=== PATIENT | female | born 1955 | race Caucasian/White ===

== ENCOUNTER 2017-02-07 16:53 | Emergency (ER) | payer BC ==
[2017-02-07] MEDS ORDERED: SODIUM CHLORIDE 0.9% 1,000 ML IV STA (17:19)
--- NOTE | 2017-02-07 17:23 | ED ---
Chest Pain HPI - General Stated Complaint: Blood Pressure Time Seen by Provider: 02/07/17 17:06 Source: patient, RN notes reviewed, old records reviewed Mode of arrival: ambulatory Limitations: no limitations - History of Present Illness Initial Comments: This is a 61 year old female with chief complaint of light headedness, elevated blood pressure, and occasional chest pain and shortness of breath. Patient states she quit smoking in September, and that she has been out of her blood pressure medications and cholesterol medication for a few weeks. She statse that she ran out of insurance and does not have a PCP. 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 She states she went to an urgent care, and her BP was 180/94 and then again 156/84. She states that she has also been extremely fatigued. Reports that when she has this she light headed ness she feels nausseated. Denies any previous heart history. 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 - Related Data Home Medications Medication Instructions Recorded Confirmed Albuterol Sulfate [Proair Hfa] 1 - 2 puff INHALATION RT-Q6H PRN 02/07/17 Fluticasone Nasal [place] [Flonase 1 spr EA NOSTRIL DAILY 02/07/17 02/07/17 Nasal [place]] Loratadine [Claritin] 10 mg PO DAILY 02/07/17 02/07/17 Simethicone [Gas-X] 125 mg PO QID PRN 02/07/17 02/07/17 Previous Rx's Medication Instructions Recorded Meclizine HCl 12.5 mg PO TID #15 tab 02/07/17 amLODIPine [Norvasc] 5 mg PO DAILY #30 tab 02/07/17 Allergies Allergy/AdvReac Type Severity Reaction Status Date / Time No Known Allergies Allergy Verified 02/07/17 17:13 Review of Systems ROS Statement: Those systems with pertinent positive or pertinent negative responses have been documented in the HPI. ROS Other: All systems not noted in ROS Statement are negative. EKG Findings - EKG Comments: EKG Findings:: EKG shows normal sinus rhythm, normal ECG. Vent rate 66 bpm, NV interval 132 ms, QRS duration 92 ms. QT/QTc 412/431 ms. 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 Limitations: no limitations General appearance: alert, in no apparent distress Head exam: Present: atraumatic, normocephalic, normal inspection Eye exam: Present: normal appearance, PERRL, EOMI. Absent: scleral icterus, conjunctival injection, periorbital swelling ENT exam: Present: normal exam, mucous membranes moist Neck exam: Present: normal inspection. Absent: tenderness, meningismus, lymphadenopathy Respiratory exam: Present: normal lung sounds bilaterally. Absent: respiratory distress, wheezes, rales, rhonchi, stridor Cardiovascular Exam: Present: regular rate, normal rhythm, normal heart sounds. Absent: systolic murmur, diastolic murmur, rubs, gallop, clicks GI/Abdominal exam: Present: soft, normal bowel sounds. Absent: distended, tenderness, guarding, rebound, rigid Extremities exam: Present: normal inspection, full ROM, normal capillary refill. Absent: tenderness, pedal edema, joint swelling, calf tenderness Back exam: Present: normal inspection Neurological exam: Present: alert, oriented X3, CN II-XII intact Psychiatric exam: Present: normal affect, normal mood Skin exam: Present: warm, dry, intact, normal color. Absent: rash Course Vital Signs 02/07/17 02/07/17 02/07/17 16:55 19:52 20:25 Temperature 97.7 F 97.2 F L Pulse Rate 80 70 Pulse Rate [ 71 Right Sitting] Pulse Rate [ 77 Right Standing] Pulse Rate [ 67 Right Supine] Respiratory 18 16 18 Rate Blood Pressure 186/86 165/77 Blood Pressure 179/89 [Right Arm Sitting] Blood Pressure 178/95 [Right Arm Standing] Blood Pressure 165/77 [Right Arm Supine] O2 Sat by Pulse 98 99 96 Oximetry Chest Pain MDM - MDM This is a 61-year-old female complaining of lightheadedness and dizziness. All labs were reviewed and are negative for any acute process. EKG is reviewed be normal. Chest x-ray normal. Patient states that she feels well enough to home. Orthostatics reviewed and negative. Patient will be started on meclizine and instructed to follow-up with primary care provider. She also given a refill for her blood pressure medication. Discussed case with Dr. Padilla. He agrees with inpatient follow-up. Patient understands treatment plan will comply. Return parameters were discussed. Patient was also given a refill of her blood pressure medication Norvasc 5 mg. Disposition Clinical Impression: Dizziness Disposition: HOME SELF-CARE Condition: Good Instructions: Dizziness (ED) Additional Instructions: Patient denies rest, remain hydrated. Patient needs to follow-up with primary care provider within the next 2 or 3 days. Return to the emergency department if any alarming signs or symptoms occur. Prescriptions: Meclizine HCl 12.5 mg PO TID #15 tab amLODIPine [Norvasc] 5 mg PO DAILY #30 tab Referrals: None,Stated [Primary Care Provider] - 1-2 days Madison Sullivan MD [STAFF PHYSICIAN] - 1-2 days Time of Disposition: 20:05
[2017-02-07] MEDS ORDERED: cloNIDine HCL 0.1 MG TAB PO STA (17:46)
[2017-02-07 18:09] LABS: Basophils % (A) 1 %; CH 30.8; CHCM 33.4; Eosinophils # (A) 0.2 k/uL (0-0.7); Eosinophils % (A) 3 %; HCT 40.7 % (34.0-46.0); HDW 2.58; HGB 13.4 gm/dL (11.4-16.0); Luc # (Auto) 0.19; Luc % (Auto) 3; Lymphocytes # (A) 2.4 k/uL (1.0-4.8); Lymphocytes % (A) 36 %; MCH 30.6 pg (25.0-35.0); MCV 92.6 fL (80.0-100.0); Mean Platelet Volume 7.4; Monocytes # (A) 0.3 k/uL (0-1.0); Monocytes % (A) 5 %; Neutrophils # (A) 3.5 k/uL (1.3-7.7); Neutrophils % (A) 53 %; RDW 14.3 % (11.5-15.5); WBC 6.7 k/uL (3.8-10.6); WBC (Perox) 6.61
[2017-02-07 18:18] LABS: ALT 50 U/L (9-52); AST 35 U/L (14-36); Alkaline Phosphatase 50 U/L (38-126); Anion Gap 8 mmol/L; Blood Urea Nitrogen 15 mg/dL (7-17); Calcium 9.3 mg/dL (8.4-10.2); Carbon Dioxide 28 mmol/L (22-30); Chloride 106 mmol/L (98-107); Glucose 99 mg/dL (74-99); Magnesium 2.1 mg/dL (1.6-2.3); Non-African American GFR(MDRD) >60 (>60 ml/min/1.73 sqM); Sodium 142 mmol/L (137-145); Total Bilirubin 0.4 mg/dL (0.2-1.3); Total Protein 6.9 g/dL (6.3-8.2)
[2017-02-07 18:21] LABS: Partial Thromboplastin Time 23.8 sec (22.0-30.0); Prothrombin Time 10.1 sec (9.0-12.0)
--- NOTE | 2017-02-07 18:24 | XR ---
EXAMINATION TYPE: XR chest 2V DATE OF EXAM: 02/07/2017 6:15 PM COMPARISON: NONE HISTORY: Chest pain TECHNIQUE: Frontal and lateral views of the chest are obtained. FINDINGS: There is no heart failure nor confluent pneumonic infiltrate. Thoracic aorta is atheromato us. There are no hilar masses. There is no pleural effusion. There are chest leads. Bony thorax is in tact. IMPRESSION: No active cardiopulmonary disease.
[2017-02-07 18:35] LABS: Creatine Kinase 104 U/L (30-135)
[2017-02-07 18:38] LABS: Appearance,Urine Clear (Clear); Bilirubin,Urine Negative (Negative); Glucose,Urine (UA) Negative (Negative); Ketones,Urine Negative (Negative); Leukocyte Esterase,Urine Negative (Negative); Nitrite,Urine Negative (Negative); Protein,Urine Negative (Negative); Specific Gravity,Urine 1.019 (1.001-1.035); UA Billing (MACRO vs. MICRO) CHEM; Urobilinogen,Urine <2.0 mg/dL (<2.0)
[2017-02-07 18:47] LABS: Creatine Kinase MB 1.8 ng/mL (0.0-2.4); Troponin I <0.012 ng/mL (0.000-0.034)
[2017-02-07 19:54] VITALS: BP 165/77
[2017-02-07 20:25] VITALS: PULSE 70; RESP 18; TEMP 97.2
== END 2017-02-07 20:25 | disposition home or self-care (01) ==
LOC: EC 16:53
DX: R42 Dizziness and giddiness (principal); R07.9 Chest pain, unspecified; R06.02 Shortness of breath; I10 Essential (primary) hypertension; R53.83 Other fatigue; R11.0 Nausea; Z87.891 Personal history of nicotine dependence; Z79.51 Long term (current) use of inhaled steroids; Z79.899 Other long term (current) drug therapy
CPT/HCPCS: 36415; 71020; 80053; 81003; 82550; 82553; 83735; 83880; 84443; 84484; 85025; 85379; 85610; 85730; 93005; 96360; 99284

== ENCOUNTER → 2018-09-21 | Outpatient (CLI) | payer OTHER ==
--- NOTE | 2018-09-24 11:18 | MM ---
Reason for exam: screening (asymptomatic). Last mammogram was performed 8 years and 5 months ago. History: Patient is postmenopausal. Excisional biopsy of the right breast. Physical Findings: A clinical breast exam by your physician is recommended on an annual basis and results should be correlated with mammographic findings. MG Screening Mammo w CAD Bilateral CC and MLO view(s) were taken. Prior study comparison: February 20, 2017, mammogram. November 04, 2015, mammogram. There are scattered fibroglandular densities. Finding: There are typically benign round calcifications in the upper outer quadrant, middle position of the right breast. There is no discrete abnormality. ASSESSMENT: Benign, BI-RAD 2 RECOMMENDATION: Routine screening mammogram of both breasts in 1 year.
== END | disposition home or self-care (01) ==
LOC: RADMAMWWP 10:20
PROVIDERS: ATTEND Internal Medicine
DX: Z12.31 Encounter for screening mammogram for malignant neoplasm of breast (principal)
CPT/HCPCS: 77067

== ENCOUNTER 2018-10-06 08:22 | Observation (INO) | payer OTHER ==
[2018-10-06] MEDS ORDERED: SODIUM CHLORIDE 0.9% 1,000 ML IV STA (08:40)
--- NOTE | 2018-10-06 08:44 | ED ---
General Adult HPI - General Chief complaint: Extremity Injury, Upper Stated complaint: FLU SYMPTOMS, LEFT SHOULDER PAIN Time Seen by Provider: 10/06/18 08:29 Source: patient, RN notes reviewed, old records reviewed Mode of arrival: ambulatory Limitations: no limitations - History of Present Illness Initial comments: Patient is a 63-year-old female who presents the emergency department today with complaints of left shoulder pain starting last night, she reports it feels like a dull pressure in her back and shoulder, towards chest. Patient reports she's been having upper a story congestion and cough for the past week. She believes that her coughing may have strained a muscle. She does state that her left shoulder pain does not change with movement. And she reports that she's had somewhat of a productive cough. Patient states that she initially thought she may have had the flu this week. She denies any abdominal pain. She reports she's had some episodes of diaphoresis and nausea. Patient denies any peripheral paresthesias. Patient states that she does have a history of hypertension. Patient is a former smoker. Surgical history includes tonsillectomy and uterine ablation.Patient denies any recent fever, chills, abdominal pain, nausea vomiting, numbness or tingling, dysuria or hematuria, constipation or diarrhea, headaches or visual changes, or any other current symptoms - Related Data Home Medications Medication Instructions Recorded Confirmed Albuterol Sulfate [Proair Hfa] 1 - 2 puff INHALATION RT-Q6H PRN 02/07/17 Atorvastatin [Lipitor] 10 mg PO DAILY 10/06/18 10/06/18 Ergocalciferol [Vitamin D2] 50,000 unit PO MO 10/06/18 10/06/18 Hydrochlorothiazide [Hydrodiuril] 25 mg PO DAILY 10/06/18 10/06/18 Metoprolol Succinate (ER) [Toprol 50 mg PO DAILY 10/06/18 10/06/18 Xl] Omeprazole 20 mg PO DAILY 10/06/18 10/06/18 buPROPion HCL [Wellbutrin Sr] 200 mg PO DAILY 10/06/18 10/06/18 Allergies Allergy/AdvReac Type Severity Reaction Status Date / Time No Known Allergies Allergy Verified 10/06/18 09:39 Review of Systems ROS Statement: Those systems with pertinent positive or pertinent negative responses have been documented in the HPI. ROS Other: All systems not noted in ROS Statement are negative. Past Medical History Past Medical History: Hypertension Additional Past Medical History / Comment(s): HPV History of Any Multi-Drug Resistant Organisms: None Reported Past Surgical History: Tonsillectomy, Uterine Ablation Past Psychological History: No Psychological Hx Reported Smoking Status: Former smoker Past Alcohol Use History: Occasional Past Drug Use History: None Reported General Exam - General Exam Comments Initial Comments: 63-year-old female. Alert and oriented 3. Patient appears in no significant distress. Limitations: no limitations General appearance: alert, in no apparent distress Head exam: Present: atraumatic, normocephalic, normal inspection Eye exam: Present: normal appearance, PERRL, EOMI. Absent: scleral icterus, conjunctival injection, periorbital swelling ENT exam: Present: normal exam, mucous membranes moist Neck exam: Present: normal inspection. Absent: tenderness, meningismus, lymphadenopathy Respiratory exam: Present: normal lung sounds bilaterally, other (Slight nonproductive cough). Absent: respiratory distress, wheezes, rales, rhonchi, stridor Cardiovascular Exam: Present: regular rate, normal rhythm, normal heart sounds. Absent: systolic murmur, diastolic murmur, rubs, gallop, clicks GI/Abdominal exam: Present: soft, normal bowel sounds. Absent: distended, tenderness, guarding, rebound, rigid Extremities exam: Present: normal inspection, full ROM, normal capillary refill. Absent: tenderness, pedal edema, joint swelling, calf tenderness Back exam: Present: normal inspection Neurological exam: Present: alert, oriented X3, CN II-XII intact Psychiatric exam: Present: normal affect, normal mood Skin exam: Present: warm, dry, intact, normal color. Absent: rash Course Vital Signs 10/06/18 08:25 Temperature 97.4 F L Pulse Rate 87 Respiratory 20 Rate Blood Pressure 115/78 O2 Sat by Pulse 97 Oximetry EKG Findings - EKG Comments: EKG Findings:: EKG performed at 914 shows normal sinus rhythm with voltage QRS. Borderline EKG. Trigger a 69 bpm. It was 146 most seconds. She alevism 88. QT QTc is 414/443 ms. Medical Decision Making - Medical Decision Making 63-year-old female presents emergency with left shoulder pain starting last night. Patient reports that she's had upper respiratory congestion and cough for the past week. She initially thought this shoulder pain is related to this. Patient is alert and has not reproducible. Full range of motion noted. The lungs were relatively clear. She has had a slight nonproductive cough. Patient has history of hypertension and hyperlipidemia. Since welfare case worker. VQ scan performed shows no significant changes. Her initial troponin is negative. Patient continues to complain of a dull ache within her shoulder radiating towards her chest. Discussed at this time still concern for possibility of cardiac origin. Patient will be admitted under sounds physician. I discussed the case with Dr. Mauro discussed case with Physician. - Lab Data Result diagrams: 10/06/18 09:16 10/06/18 09:16 Lab Results 10/06/18 10/06/18 10/06/18 Range/Units 09:16 09:16 09:16 WBC 8.0 (3.8-10.6) k/uL RBC 4.90 (3.80-5.40) m/uL Hgb 14.8 (11.4-16.0) gm/dL Hct 43.7 (34.0-46.0) % MCV 89.3 (80.0-100.0) fL MCH 30.2 (25.0-35.0) pg MCHC 33.8 (31.0-37.0) g/dL RDW 14.7 (11.5-15.5) % Plt Count 269 (150-450) k/uL Neutrophils % 63 % Lymphocytes % 27 % Monocytes % 4 % Eosinophils % 4 % Basophils % 1 % Neutrophils # 5.1 (1.3-7.7) k/uL Lymphocytes # 2.2 (1.0-4.8) k/uL Monocytes # 0.3 (0-1.0) k/uL Eosinophils # 0.3 (0-0.7) k/uL Basophils # 0.0 (0-0.2) k/uL PT (9.0-12.0) sec INR (<1.2) APTT (22.0-30.0) sec D-Dimer (<0.60) mg/L FEU Sodium 140 (137-145) mmol/L Potassium 3.4 L (3.5-5.1) mmol/L Chloride 106 (98-107) mmol/L Carbon Dioxide 26 (22-30) mmol/L Anion Gap 8 mmol/L BUN 12 (7-17) mg/dL Creatinine 1.00 (0.52-1.04) mg/dL Est GFR (CKD-EPI)AfAm 70 (>60 ml/min/1.73 sqM) Est GFR (CKD-EPI)NonAf 61 (>60 ml/min/1.73 sqM) Glucose 185 H (74-99) mg/dL Calcium 9.2 (8.4-10.2) mg/dL Magnesium 2.0 (1.6-2.3) mg/dL Total Bilirubin 0.5 (0.2-1.3) mg/dL AST 39 H (14-36) U/L ALT 47 (9-52) U/L Alkaline Phosphatase 47 (38-126) U/L Total Creatine Kinase 97 (30-135) U/L CK-MB (CK-2) 0.8 (0.0-2.4) ng/mL CK-MB (CK-2) Rel Index 0.8 Troponin I <0.012 (0.000-0.034) ng/mL NT-Pro-B Natriuret Pep pg/mL Total Protein 6.9 (6.3-8.2) g/dL Albumin 4.1 (3.5-5.0) g/dL 10/06/18 10/06/18 Range/Units 09:16 09:16 WBC (3.8-10.6) k/uL RBC (3.80-5.40) m/uL Hgb (11.4-16.0) gm/dL Hct (34.0-46.0) % MCV (80.0-100.0) fL MCH (25.0-35.0) pg MCHC (31.0-37.0) g/dL RDW (11.5-15.5) % Plt Count (150-450) k/uL Neutrophils % % Lymphocytes % % Monocytes % % Eosinophils % % Basophils % % Neutrophils # (1.3-7.7) k/uL Lymphocytes # (1.0-4.8) k/uL Monocytes # (0-1.0) k/uL Eosinophils # (0-0.7) k/uL Basophils # (0-0.2) k/uL PT 10.3 (9.0-12.0) sec INR 1.0 (<1.2) APTT 23.1 (22.0-30.0) sec D-Dimer 0.35 (<0.60) mg/L FEU Sodium (137-145) mmol/L Potassium (3.5-5.1) mmol/L Chloride (98-107) mmol/L Carbon Dioxide (22-30) mmol/L Anion Gap mmol/L BUN (7-17) mg/dL Creatinine (0.52-1.04) mg/dL Est GFR (CKD-EPI)AfAm (>60 ml/min/1.73 sqM) Est GFR (CKD-EPI)NonAf (>60 ml/min/1.73 sqM) Glucose (74-99) mg/dL Calcium (8.4-10.2) mg/dL Magnesium (1.6-2.3) mg/dL Total Bilirubin (0.2-1.3) mg/dL AST (14-36) U/L ALT (9-52) U/L Alkaline Phosphatase (38-126) U/L Total Creatine Kinase (30-135) U/L CK-MB (CK-2) (0.0-2.4) ng/mL CK-MB (CK-2) Rel Index Troponin I (0.000-0.034) ng/mL NT-Pro-B Natriuret Pep 25 pg/mL Total Protein (6.3-8.2) g/dL Albumin (3.5-5.0) g/dL - Radiology Data Radiology results: report reviewed Chest x-ray shows hypoventilatory chronic changes. No definite abscess. Disposition Clinical Impression: Shoulder pain, left, Atypical chest pain Disposition: ADMITTED IP TO THIS [facility] Condition: Stable Is patient prescribed a controlled substance at d/c from ED?: No Referrals: Eduin Su MD [Primary Care Provider] - 1-2 days Time of Disposition: 11:08
[2018-10-06 09:36] LABS: Basophils % (A) 1 %; Eosinophils # (A) 0.3 k/uL (0-0.7); Eosinophils % (A) 4 %; HCT 43.7 % (34.0-46.0); HGB 14.8 gm/dL (11.4-16.0); Lymphocytes # (A) 2.2 k/uL (1.0-4.8); Lymphocytes % (A) 27 %; MCH 30.2 pg (25.0-35.0); MCHC 33.8 g/dL (31.0-37.0); MCV 89.3 fL (80.0-100.0); Mean Platelet Volume 7.3; Monocytes # (A) 0.3 k/uL (0-1.0); Monocytes % (A) 4 %; Neutrophils # (A) 5.1 k/uL (1.3-7.7); Neutrophils % (A) 63 %; Platelet Count 269 k/uL (150-450); RDW 14.7 % (11.5-15.5)
--- NOTE | 2018-10-06 09:43 | XR ---
EXAMINATION TYPE: XR chest 2V DATE OF EXAM: 10/06/2018 COMPARISON: 02/07/2017 HISTORY: 63-year-old female with chest pain TECHNIQUE: PA and lateral views FINDINGS: Slightly low lung volumes with crowded vascular markings. Mild interstitial prominence. Heart upper l imits of normal in size. Focal opacity at the cardiac apex suggestive of epicardial fat pad. No conso lidation or pleural effusion. Atelectatic arch calcifications. IMPRESSION: Hypoventilatory and chronic changes. No definite acute process.
[2018-10-06 09:50] LABS: Albumin 4.1 g/dL (3.5-5.0); Calcium 9.2 mg/dL (8.4-10.2); Potassium 3.4 mmol/L (3.5-5.1); Total Bilirubin 0.5 mg/dL (0.2-1.3); Total Protein 6.9 g/dL (6.3-8.2)
[2018-10-06 09:57] LABS: D-Dimer 0.35 mg/L FEU (<0.60); Partial Thromboplastin Time 23.1 sec (22.0-30.0); Prothrombin Time 10.3 sec (9.0-12.0)
[2018-10-06 10:09] LABS: Creatine Kinase 97 U/L (30-135)
[2018-10-06 10:21] LABS: Creatine Kinase MB 0.8 ng/mL (0.0-2.4); Troponin I <0.012 ng/mL (0.000-0.034)
[2018-10-06] MEDS ORDERED: NITROGLYCERIN SL TABS 0.4 MG TAB SUBLINGUAL PRN (11:10)
[2018-10-06] MEDS ORDERED: MORPHINE SULFATE 4 MG/ML SYRINGE IVP STA (12:07)
[2018-10-06] MEDS ORDERED: ASPIRIN 81 MG PO STA (12:39)
[2018-10-06] MEDS: SODIUM CHLORIDE 0.9% 1,000 ML IV SCH ×2 (12:56→22:21)
[2018-10-06] MEDS ORDERED: MORPHINE SULFATE 4 MG/ML SYRINGE IV PRN (13:48)
[2018-10-06] MEDS ORDERED: NALOXONE 0.4 MG/ML 1 ML VIAL IV PRN (13:48)
[2018-10-06] MEDS ORDERED: ACETAMINOPHEN TAB 325 MG TAB PO PRN (13:48)
--- NOTE | 2018-10-06 13:51 | P.HPIM ---
History of Present Illness H&P Date: 10/06/18 Chief Complaint: Back pain 63-year-old female with PMH of hypertension, hyperlipidemia presents to the ED for chest and back pain. Patient reports suffering from a viral illness for the past week and a half. Her illnesses is characterized by rhinorrhea, productive cough of clear sputum, sore throat and sneezing. Patient reports experiencing upper back pain/chest pain yesterday. Pain was unprovoked. Pain is located in between the shoulder blades. Pain is 8 out of 10 in severity. Pain is described as burning in nature. Patient reports that the pain radiates to left shoulder. Pain is aggravated with movement and alleviated by standing still. Patient reports no prior incidents. Patient states that this pain was persistent but eventually resolved. Patient was able to go back to bed, but woke up around 4 AM with this excruciating pain. This prompted her to come to the ED. She denies any headaches, lower extremity edema , fever, cough, shortness of breath, changes in urination or bowel habits. No changes in appetite or weight. No numbness, weakness or tingling of the extremities. Patient does report nausea from yesterday but no episodes of vomiting. She also endorses chills as well. In the ED, vital signs are stable. CBC and CMP were unremarkable except for a potassium of 3.4, glucose of 185 and AST of 39. Initial troponin was less than 0.012, EKG showing normal sinus rhythm. Chest x-ray shows hypoventilatory and chronic changes. Patient is admitted for chest pain, rule out acute coronary syndrome. Cardiology is on consult. 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 History of Any Multi-Drug Resistant Organisms: None Reported Past Surgical History: Tonsillectomy, Uterine Ablation Past Psychological History: No Psychological Hx Reported Smoking Status: Former smoker Past Alcohol Use History: Occasional Past Drug Use History: None Reported Medications and Allergies Home Medications Medication Instructions Recorded Confirmed Type Albuterol Sulfate [Proair Hfa] 1 - 2 puff INHALATION RT-Q6H PRN 02/07/17 History Atorvastatin [Lipitor] 10 mg PO DAILY 10/06/18 10/06/18 History Ergocalciferol [Vitamin D2] 50,000 unit PO MO 10/06/18 10/06/18 History Hydrochlorothiazide [Hydrodiuril] 25 mg PO DAILY 10/06/18 10/06/18 History Metoprolol Succinate (ER) [Toprol 50 mg PO DAILY 10/06/18 10/06/18 History Xl] Omeprazole 20 mg PO DAILY 10/06/18 10/06/18 History buPROPion HCL [Wellbutrin Sr] 200 mg PO DAILY 10/06/18 10/06/18 History Allergies Allergy/AdvReac Type Severity Reaction Status Date / Time No Known Allergies Allergy Verified 10/06/18 09:39 Physical Exam Vitals: Vital Signs Temp Pulse Resp BP Pulse Ox 10/06/18 08:25 97.4 F L 87 20 115/78 97 Intake and Output 10/05/18 10/06/18 10/06/18 22:59 06:59 14:59 Other: Weight 108.862 kg General: [non toxic], [no distress], [appears at stated age] Derm: [warm], [dry] Head: [atraumatic], [normocephalic], [symmetric] Eyes: [EOMI], [no lid lag], [anicteric sclera] Mouth: [no lip lesion], [mucus membranes moist] Cardiovascular: [S1S2 reg], [no murmur], [positive posterior tibial pulse bilateral], Lungs: [CTA bilateral], [no rhonchi, no rales] , [no accessory muscle use] Abdominal: [soft], [ nontender to palpation], [no guarding], [no appreciable organomegaly] Ext: [no gross muscle atrophy], [no edema], [no contractures] Neuro: [ CN II-XI grossly intact], [no focal neuro deficits] Psych: [Alert], [oriented], [appropriate affect] Results CBC & Chem 7: 10/06/18 09:16 10/06/18 09:16 Labs: Abnormal Lab Results - Last 24 Hours (Table) 10/06/18 Range/Units 09:16 Potassium 3.4 L (3.5-5.1) mmol/L Glucose 185 H (74-99) mg/dL AST 39 H (14-36) U/L Thrombosis Risk Factor Assmnt - Choose All That Apply Any of the Below Risk Factors Present?: No Other Risk Factors: Yes Each Risk Factor Represents 2 Points: Age 61-74 years Thrombosis Risk Factor Assessment Total Risk Factor Score: 2 Thrombosis Risk Factor Assessment Level: Low Risk Assessment and Plan Assessment: Assessment and Plan Chest pain - Likely to be musculoskeletal due to cough. - Initial troponin is less than 0.012 with EKG showing normal sinus rhythm. - Chest x-ray is negative for any acute process. - Start aspirin 325 mg by mouth daily. Will restart Lipitor 10 mg by mouth daily. Restart metoprolol 50 mg by mouth daily. Pain management with Nitrostat , Tylenol and morphine IV as needed. Telemetry monitoring. I will trend 2 troponins with EKG to rule out acute coronary syndrome. Will follow lipid panel and echocardiogram results. We will follow cardiology for further recommendations. Hypertension - Blood pressure is stable on admission at 115/78 - Resume hydrochlorothiazide 25 mg by mouth daily, metoprolol. - Monitor vitals, adjust medications as necessary. Hyperlipidemia - We will resume Lipitor 10 mg by mouth daily. Patient is being admitted for chest pain rule out acute coronary syndrome. Cardiology is on consult.
[2018-10-06 15:50] VITALS: RESP 18
[2018-10-06 16:23] LABS: Creatine Kinase 96 U/L (30-135)
[2018-10-06 16:36] LABS: Creatine Kinase MB 0.8 ng/mL (0.0-2.4); Troponin I <0.012 ng/mL (0.000-0.034)
--- NOTE | 2018-10-06 18:27 | ECHOF ---
Referral Reason:Chest pain MEASUREMENTS -------- HEIGHT: 165.1 cm WEIGHT: 108.9 kg BP: 115/78 RVIDd: 3.0 cm (< 3.3) IVSd: 1.4 cm (0.6 - 1.1) LVIDd: 4.0 cm (3.9 - 5.3) LVPWd: 1.3 cm (0.6 - 1.1) IVSs: 1.7 cm LVIDs: 2.7 cm LVPWs: 1.6 cm LA Diam: 3.3 cm (2.7 - 3.8) LAESV Index (A-L): 12.49 ml/m Ao Diam: 3.0 cm (2.0 - 3.7) AV Cusp: 2.0 cm (1.5 - 2.6) EPSS: 0.7 cm MV E Conor: 0.96 m/s MV DecT: 236 ms MV A Conor: 0.86 m/s MV E/A Ratio: 1.12 RAP: 5.00 mmHg RVSP: 23.40 mmHg MV EF SLOPE: 53.97 mm/s (70 - 150) MV EXCURSION: 0.68 cm (> 18.000) FINDINGS -------- Sinus rhythm. This was a technically adequate study. The left ventricular size is normal. There is moderate concentric left ventricular hypertrophy. O verall left ventricular systolic function is normal with, an EF between 60 - 65 %. The right ventricle is normal in size. Normal LA size by volume 22+/-6 ml/m2. The right atrium is normal in size. The aortic valve is trileaflet and appears structurally normal. Mild mitral annular calcification present. Mild tricuspid regurgitation present. Right ventricular systolic pressure is normal at < 35 mmHg. There is no pulmonic regurgitation present. The aortic root size is normal. IVC Not well visulized. There is no pericardial effusion. CONCLUSIONS -------- 1. Sinus rhythm. 2. This was a technically adequate study. 3. The left ventricular size is normal. 4. There is moderate concentric left ventricular hypertrophy. 5. Overall left ventricular systolic function is normal with, an EF between 60 - 65 %. 6. The right ventricle is normal in size. 7. Normal LA size by volume 22+/-6 ml/m2. 8. The right atrium is normal in size. 9. The aortic valve is trileaflet and appears structurally normal. 10. Mild mitral annular calcification present. 11. Mild tricuspid regurgitation present. 12. Right ventricular systolic pressure is normal at < 35 mmHg. 13. There is no pulmonic regurgitation present. 14. The aortic root size is normal. 15. IVC Not well visulized. 16. There is no pericardial effusion. SUPERINTENDENT COMMUNICATIONS: MERY Yin
[2018-10-06 22:27] LABS: Creatine Kinase 220 U/L (30-135)
[2018-10-06 22:40] LABS: Troponin I <0.012 ng/mL (0.000-0.034)
[2018-10-07] MEDS ORDERED: ACETAMINOPHEN TAB 325 MG TAB ONE (04:40)
[2018-10-07 06:45] LABS: Cholesterol 146 mg/dL (<200); HDL Cholesterol 37 mg/dL (40-60); LDL Cholesterol,Calculated 73 mg/dL (0-99); Triglycerides 182 mg/dL (<150)
[2018-10-07 07:52] VITALS: BP 107/65; PULSE 57; TEMP 97.8
--- NOTE | 2018-10-07 08:16 | CONS ---
CONSULTATION Mrs. Antonina Baltazar is a 63-year-old lady with a known history of hypertension and hypercholesterolemia who sees Dr. Su in the outpatient setting. She came into the hospital mainly with a complaint of having discomfort in the left shoulder and also in the scapular area. The quality of pain seemed very atypical. She has been also having flu-like illness with a runny nose, cough and with this coughing bout she feels she may have even pulled a muscle. The quality of pain is very atypical, seems musculoskeletal, does not suggest in any way form of angina. She has hypertension under good control and also hypercholesterolemia. She is reasonably active person otherwise. PAST MEDICAL HISTORY: Hypertension, hyperlipidemia. She is status post tonsillectomy and uterine ablation. The patient has quit smoking more than 10 years ago. She does not use alcohol on a regular basis. ALLERGIES: None. MEDICATIONS: Metoprolol succinate 25 mg daily, hydrochlorothiazide 25 mg daily, vitamin D supplements, and she also takes omeprazole and Wellbutrin. She takes atorvastatin 10 mg daily. PHYSICAL EXAMINATION: On examination, blood pressure is 120/70, pulse rate is 70 per minute regular. HEENT unremarkable. Fundus was not examined by me. Neck is supple. No JVD. I do not hear a carotid bruit. There is no thyromegaly. Heart exam reveals S1, S2 heard normally without a rub, murmur or gallop. Lungs are clear. Abdomen is soft, nontender. Lower extremities reveal normal pulses. No edema. Central nervous system is normal. EKG revealed sinus mechanism, no acute changes. IMPRESSION: 1. Atypical chest pain. 2. Flu-like illness, recovering well. 3. Hypertension, under control. 4. Hyperlipidemia. RECOMMENDATIONS: Patient's pain is very atypical does not suggest angina. I am recommending that we increase oral fluids, decrease her aspirin to 81 mg daily, place her on subcu heparin 5000 q.12 hours. She can be discharged today and I will see her in the office in 2 to 3 weeks and perform a stress test as an outpatient. Her echocardiogram did not reveal any significant abnormalities. Thank you very much for the consult. MMODL / IJN: [id number] /
[2018-10-07] MEDS ORDERED: buPROPion SR 100 MG TABLET.ER PO SCH (09:00)
[2018-10-07] MEDS ORDERED: HYDROCHLOROTHIAZIDE 25 MG TAB PO SCH (09:00)
[2018-10-07] MEDS ORDERED: ASPIRIN 81 MG PO SCH (09:00)
[2018-10-07] MEDS ORDERED: ATORVASTATIN 10 MG TAB PO SCH (09:00)
[2018-10-07] MEDS ORDERED: ASPIRIN 325 MG TAB PO SCH (09:00)
[2018-10-07] MEDS ORDERED: METOPROLOL SUCCINATE (ER) 50 MG TAB.ER.24H PO SCH (09:00)
[2018-10-07] MEDS ORDERED: HEPARIN SODIUM,PORCINE 5,000 UNIT/ML 1 ML VIAL SQ SCH (09:00)
[2018-10-07] MEDS ORDERED: PANTOPRAZOLE 40 MG TABLET PO SCH (09:00)
--- NOTE | 2018-10-07 09:01 | P.DS ---
Providers Date of admission: 10/06/18 11:51 Expected date of discharge: 10/07/18 Attending physician: Dereck Hernandez MD Consults: 10/06/18 11:58 Consult Physician Urgent Consulting Provider: Soren Mohan Consult Reason/Comments: atypical chest pain Do you want consulting provider notified?: Yes Primary care physician: Eduin Su - Discharge Diagnosis(es) (1) Hypertension Current Visit: Yes Status: Acute (2) Hyperlipidemia Current Visit: Yes Status: Acute (3) Atypical chest pain Current Visit: Yes Status: Acute Hospital Course: 63-year-old female with PMH of hypertension, hyperlipidemia presents to the ED for chest and back pain. Patient reports suffering from a viral illness for the past week and a half. Her illnesses is characterized by rhinorrhea, productive cough of clear sputum, sore throat and sneezing. Patient reports experiencing upper back pain/chest pain yesterday. Pain was unprovoked. Pain is located in between the shoulder blades. Pain is 8 out of 10 in severity. Pain is described as burning in nature. Patient reports that the pain radiates to left shoulder. Pain is aggravated with movement and alleviated by standing still. Patient reports no prior incidents. Patient states that this pain was persistent but eventually resolved. Patient was able to go back to bed, but woke up around 4 AM with this excruciating pain. This prompted her to come to the ED. She denies any headaches, lower extremity edema , fever, cough, shortness of breath, changes in urination or bowel habits. No changes in appetite or weight. No numbness, weakness or tingling of the extremities. Patient does report nausea from yesterday but no episodes of vomiting. She also endorses chills as well. In the ED, vital signs are stable. CBC and CMP were unremarkable except for a potassium of 3.4, glucose of 185 and AST of 39. Initial troponin was less than 0.012, EKG showing normal sinus rhythm. Chest x-ray shows hypoventilatory and chronic changes. With regard to her chest pain, this is thought to be secondary to her pulmonary process. Troponins was less than 0.0123 with EKG showing normal sinus rhythm.lipid panel was within normal limits except for triglyceride of 182 and HDL of 37.echocardiogram was done which showed an ejection fraction of 60-65% with moderate LVH. Cardiology was consulted and recommended outpatient stress test in 3 weeks. Patient was seen and examined prior to discharge no acute events overnight. Patient reports improvement in her chest/back pain but continues to complain of its persistence. Patient continues to complain of cough productive of white sputum. Pain is greatly improved since yesterday. She is looking for to going home. She denies any shortness of breath or palpitations. No nausea or vomiting. General: [non toxic], [no distress], [appears at stated age] Derm: [warm], [dry] Head: [atraumatic], [normocephalic], [symmetric] Eyes: [EOMI], [no lid lag], [anicteric sclera] Mouth: [no lip lesion], [mucus membranes moist] Cardiovascular: [S1S2 reg], [no murmur] Lungs: [CTA bilateral], [no rhonchi, no rales] , [no accessory muscle use] Abdominal: [soft], [ nontender to palpation], [no guarding], [no appreciable organomegaly] Ext: [no gross muscle atrophy], [no edema], [no contractures] Neuro: [no focal neuro deficits] Psych: [Alert], [oriented], [appropriate affect] Assessment and Plan 1. Chest pain: Likely to be musculoskeletal due to cough. Trop < 0.012 x 3 with EKG showing NSR (ACS is ruled out). Chest x-ray is negative for any acute process. Continue aspirin, Lipitor and metoprolol. Pain management with Nitrostat, Tylenol and morphine IV as needed. Telemetry monitoring. Cardiology consulted, recommend stress test in 3 weeks. Echo shows EF of 60-65% with moderate LVH. Lipid panel shows elevated triglycerides at 182 and low HDL of 37. 2. Hypertension - Blood pressure is stable on admission at 115/78 - Resume hydrochlorothiazide 25 mg by mouth daily, metoprolol. - Monitor vitals, adjust medications as necessary. 3. Hyperlipidemia - We will resume Lipitor 10 mg by mouth daily. Patient advised to follow-up with primary care provider within 2-3 days of discharge. Patient advised to follow-up with cardiology Dr. Don within 3 weeks of discharge for stress testing. Pertinent Studies: chest x-ray Echocardiogram Patient Condition at Discharge: Stable Plan - Discharge Summary Discharge Rx Participant: No New Discharge Prescriptions: New Aspirin 81 mg PO DAILY #30 chew Continue Albuterol Sulfate [Proair Hfa] 1 - 2 puff INHALATION RT-Q6H PRN PRN Reason: Shortness Of Breath Omeprazole 20 mg PO DAILY Metoprolol Succinate (ER) [Toprol XL] 50 mg PO DAILY Hydrochlorothiazide [Hydrodiuril] 25 mg PO DAILY Ergocalciferol [Vitamin D2 (DRISDOL)] 50,000 unit PO MO Atorvastatin [Lipitor] 10 mg PO DAILY buPROPion HCL [Wellbutrin SR] 200 mg PO DAILY Discharge Medication List Albuterol Sulfate [Proair Hfa] 1 - 2 puff INHALATION RT-Q6H PRN 02/07/17 [ History] Atorvastatin [Lipitor] 10 mg PO DAILY 10/06/18 [History] Ergocalciferol [Vitamin D2 (DRISDOL)] 50,000 unit PO MO 10/06/18 [History] Hydrochlorothiazide [Hydrodiuril] 25 mg PO DAILY 10/06/18 [History] Metoprolol Succinate (ER) [Toprol XL] 50 mg PO DAILY 10/06/18 [History] Omeprazole 20 mg PO DAILY 10/06/18 [History] buPROPion HCL [Wellbutrin SR] 200 mg PO DAILY 10/06/18 [History] Aspirin 81 mg PO DAILY #30 chew 10/07/18 [Rx] Follow up Appointment(s)/Referral(s): Ji Don MD [STAFF PHYSICIAN] - 3 Weeks (for outpatient stress test) Eduin Su MD [Primary Care Provider] - 1-2 days Activity/Diet/Wound Care/Special Instructions: Diet: HEART healthy Please follow-up with your primary care provider within 1-2 days of discharge. Please follow-up with cardiology Dr. Don within 3 weeks of discharge. Please take all medications as advised. Discharge Disposition: HOME SELF-CARE
[2018-10-12] MEDS ORDERED: ERGOCALCIFEROL 50,000 UNIT CAP PO SCH (09:00)
== END 2018-10-07 10:35 | disposition home or self-care (01) ==
LOC: EC 08:22 → 1SOBS 11:51
PROVIDERS: ADMIT Hospitalist; ATTEND Hospitalist
DX: R07.89 Other chest pain (principal); I10 Essential (primary) hypertension; E78.5 Hyperlipidemia, unspecified; R05 Cough; M54.6 Pain in thoracic spine; M25.512 Pain in left shoulder; R09.89 Other specified symptoms and signs involving the circulatory and respiratory systems; E78.00 Pure hypercholesterolemia, unspecified; R61 Generalized hyperhidrosis; R11.0 Nausea; J34.89 Other specified disorders of nose and nasal sinuses; J02.9 Acute pharyngitis, unspecified; R68.83 Chills (without fever); R06.7 Sneezing; Z87.891 Personal history of nicotine dependence; Z79.899 Other long term (current) drug therapy
CPT/HCPCS: 96376; 96361; 96374; 99285; 36415; 93005; 93306; 85379; 83880; 80061; 80053; 82550; 82553; 83735; 84484; 85025; 85610; 85730; 71046; G0378 ×2; J2270; S0106

== ENCOUNTER → 2019-03-10 | Outpatient (CLI) | payer OTHER ==
[2019-03-10 10:43] LABS: Basophils % (A) 1 %; Eosinophils # (A) 0.2 k/uL (0-0.7); Eosinophils % (A) 2 %; HCT 43.5 % (34.0-46.0); HGB 14.3 gm/dL (11.4-16.0); Lymphocytes % (A) 46 %; MCH 29.4 pg (25.0-35.0); MCHC 32.8 g/dL (31.0-37.0); MCV 89.8 fL (80.0-100.0); Mean Platelet Volume 7.2; Monocytes # (A) 0.3 k/uL (0-1.0); Monocytes % (A) 4 %; Neutrophils % (A) 46 %; Platelet Count 234 k/uL (150-450); RBC 4.84 m/uL (3.80-5.40); RDW 14.7 % (11.5-15.5); WBC 6.6 k/uL (3.8-10.6)
[2019-03-10 16:02] LABS: African American GFR (CKD) 79.4 (60.0-200.0); Anion Gap 8.1 mmol/L (4.00-12.00); BUN/Creat Ratio 11.11 Ratio (12.00-20.00); Calcium 9.4 mg/dL (8.7-10.3); Carbon Dioxide 27.9 mmol/L (21.6-31.8); LDL Cholesterol,Calculated 75.8 mg/dL (0.0-131.0); Potassium 4.8 mmol/L (3.5-5.5); VLDL Calculation 28.2 mg/dL (5.00-40.00)
== END | disposition home or self-care (01) ==
LOC: LABWHC1 09:26
PROVIDERS: ATTEND Nurse Practitioner Adult Health
DX: E78.5 Hyperlipidemia, unspecified (principal); E55.9 Vitamin D deficiency, unspecified; K21.9 Gastro-esophageal reflux disease without esophagitis; I10 Essential (primary) hypertension
CPT/HCPCS: 36415; 80048; 80061; 82306; 85025

== ENCOUNTER 2022-04-05 08:07 | Day surgery (SDC) | payer MEDICARE, OTHER ==
[2022-04-02 12:26] VITALS: BMI 31.1
[~2022-04-05 08:07] MED LIST: LACTATED RINGERS 1,000 ML IV SCH; LIDOCAINE 1% (10MG/ML) FOR IV START INTRADERMA PRN
[2022-04-05 08:37] VITALS: TEMP 97.2
[2022-04-05] MEDS ORDERED: PROPOFOL 10 MG/ML 20 ML VIAL IV ONE (09:18)
--- NOTE | 2022-04-05 09:41 | P.HPIHPCON ---
History of Present Illness H&P Date: 04/05/22 66-year-old female presents for screening colonoscopy. She states she has a family history of colon cancer. She also states that she occasionally has blood in her stool. She states that polyps have been found in the past during colonoscopy. She has no other complaints at this time. Consent for Procedure: I have explained the operation/procedure to the patient, including the risks, benefits, side effects, alternative therapies (including not receiving the proposed treatment or service), the likelihood of the patient achieving his/her goals, and potential recuperation problems for the procedure/sedation/analgesia, as well as any blood products, if indicated. I also explained to the patient the risks, benefits and side effects of the alternatives, as well as the risks related to not receiving the proposed procedure, care, treatment, or services. - Review of Systems All systems: negative Past Medical History Past Medical History: Asthma, Hypertension, Osteoarthritis (OA), Pneumonia Additional Past Medical History / Comment(s): allergies, hx asthma (no problems now) .,HPV, diverticulitis. History of Any Multi-Drug Resistant Organisms: None Reported Past Surgical History: Tonsillectomy, Uterine Ablation Additional Past Surgical History / Comment(s): uternie ablation, colonoscopy, conization of cervix Past Anesthesia/Blood Transfusion Reactions: No Reported Reaction Additional Past Anesthesia/Blood Transfusion Reaction / Comment(s): . Past Psychological History: No Psychological Hx Reported Smoking Status: Former smoker Past Alcohol Use History: Daily Additional Past Alcohol Use History / Comment(s): started smoking at age 17 (1972) and quit 2014 smoked 1ppd. drinks 2 drinks daily Past Drug Use History: Marijuana Additional Drug Use History / Comment(s): edible marijuana - Past Family History Father Family Medical History: Cancer Additional Family Medical History / Comment(s): colon cancer Mother Additional Family Medical History / Comment(s): from aneurysm Medications and Allergies Home Medications Medication Instructions Recorded Confirmed Type Ergocalciferol [Vitamin D2 50,000 unit PO MO 10/06/18 04/02/22 History (DRISDOL)] Omeprazole 20 mg PO DAILY 10/06/18 04/02/22 History Atorvastatin [Lipitor] 40 mg PO HS 04/02/22 04/02/22 History Losartan Potassium 100 mg PO HS 04/02/22 04/02/22 History Allergies Allergy/AdvReac Type Severity Reaction Status Date / Time amlodipine [From Lotrel] Allergy Unknown Swelling Verified 04/05/22 08:33 of tongue benazepril [From Lotrel] Allergy Unknown Swelling Verified 04/05/22 08:33 of tongue Surgical - Exam Osteopathic Statement: *. No significant issues noted on an osteopathic structural exam other than those noted in the History and Physical/Consult. Vital Signs Temp Pulse Resp BP Pulse Ox 97.2 F L 56 L 16 158/74 99 04/05/22 08:36 04/05/22 08:36 04/05/22 08:36 04/05/22 08:36 04/05/22 08:36 - General well nourished, no distress - Eyes normal ocular movement - Neck trachea midline - Respiratory normal respiratory effort - Abdomen Abdomen: soft, non tender Assessment and Plan Plan: 66-year-old female presents for screening colonoscopy. Risks, benefits and alternatives were provided to the patient appeared further recommendations after procedure.
--- NOTE | 2022-04-05 09:43 | P.PCN ---
Date of Procedure: 04/05/22 Preoperative Diagnosis: Screening Postoperative Diagnosis: Diverticulosis Procedure(s) Performed: Colonoscopy Anesthesia: MAC Surgeon: Dulce Haile Pathology: none sent Condition: stable Disposition: same day Indications for Procedure: 66-year-old female presents for screening colonoscopy. She does have a family history of colon cancer. She does have occasional blood in her stool. Operative Findings: Diverticulosis Description of Procedure: The patient was brought to the endoscopy suite. He was then placed in left lateral decubitus position and adequate sedation was achieved using conscious sedation. A digital rectal exam was performed and mild internal hemorrhoids were palpated. An endoscope was then placed in the rectum and advanced to the cecum as identified by landmarks including the appendiceal orifice and the ileocecal valve. The prep was good. The colonoscope was then slowly withdrawn, examining for any mucosal abnormalities. The cecum, ascending, transverse, descending and sigmoid colon were visualized adequately. There were no large neoplastic lesions noted throughout the colon. There were no obvious polyps noted throughout the colon. Diverticulosis was noted scattered throughout the sigmoid colon. Retroflexion was performed in the rectum and mild internal hemorrhoids were visible. Excess air was removed, the colonoscope withdrawn and the procedure terminated. The patient was then transferred to recovery unit in stable condition. Repeat colonoscopy should be performed in 5 years due to family history of colon cancer.
[2022-04-05 10:07] VITALS: RESP 15
[2022-04-05 10:25] VITALS: BP 167/94; PULSE 73
== END 2022-04-05 10:45 | disposition home or self-care (01) ==
LOC: ORWHC2ENDO 08:07
PROVIDERS: ATTEND Surgery
DX: Z12.11 Encounter for screening for malignant neoplasm of colon (principal); K57.30 Diverticulosis of large intestine without perforation or abscess without bleeding; K64.8 Other hemorrhoids; Z80.0 Family history of malignant neoplasm of digestive organs; I10 Essential (primary) hypertension; G47.33 Obstructive sleep apnea (adult) (pediatric); K21.9 Gastro-esophageal reflux disease without esophagitis; E55.9 Vitamin D deficiency, unspecified; M81.0 Age-related osteoporosis without current pathological fracture; Z87.19 Personal history of other diseases of the digestive system; Z86.19 Personal history of other infectious and parasitic diseases; Z98.890 Other specified postprocedural states; Z82.49 Family history of ischemic heart disease and other diseases of the circulatory system; Z83.3 Family history of diabetes mellitus; Z81.8 Family history of other mental and behavioral disorders; Z87.891 Personal history of nicotine dependence; Z79.899 Other long term (current) drug therapy; Z88.2 Allergy status to sulfonamides; Z88.8 Allergy status to other drugs, medicaments and biological substances
CPT/HCPCS: J2704; G0105

== ENCOUNTER 2022-07-20 12:15 | Emergency (ER) | payer MEDICARE, OTHER ==
[2022-07-20 12:26] VITALS: BP 160/87; PULSE 79; RESP 16; TEMP 98.2
--- NOTE | 2022-07-20 12:59 | XR ---
EXAMINATION TYPE: XR knee complete RT DATE OF EXAM: 07/20/2022 CLINICAL HISTORY: Injury with pain TECHNIQUE: Three views of the right knee are obtained. COMPARISON: None. FINDINGS: There is no acute fracture/dislocation evident in right knee. Mild narrowing medial tibiof emoral compartments. Mild to moderate narrowing patellofemoral compartment. No significant spurring. The overlying soft tissue appears unremarkable. IMPRESSION: There is no acute fracture or dislocation in the right knee.
--- NOTE | 2022-07-20 13:23 | ED ---
Lower Extremity Injury HPI - General Chief Complaint: Extremity Injury, Lower Stated Complaint: Fall Time Seen by Provider: 07/20/22 12:27 Source: patient Mode of arrival: wheelchair Limitations: no limitations - History of Present Illness Initial Comments: Patient is a 66-year-old female presenting with chief complaint of right knee pain. Patient states that yesterday she was fishing, she dove on top of a fishy caught after the line broke. She notes some swelling and bruising. She admits to pain with weightbearing and range of motion. Pain is located primarily on the lateral portion of the knee. She denies any numbness, tingling, weakness, redness, warmth, fever, chills. - Related Data Home Medications Medication Instructions Recorded Confirmed Ergocalciferol [Vitamin D2 50,000 unit PO MO 10/06/18 04/02/22 (DRISDOL)] Omeprazole 20 mg PO DAILY 10/06/18 04/02/22 Atorvastatin [Lipitor] 40 mg PO HS 04/02/22 04/02/22 Losartan Potassium 100 mg PO HS 04/02/22 04/02/22 Allergies Allergy/AdvReac Type Severity Reaction Status Date / Time amlodipine [From Lotrel] Allergy Unknown Swelling Verified 07/20/22 12:22 of tongue benazepril [From Lotrel] Allergy Unknown Swelling Verified 07/20/22 12:22 of tongue Review of Systems ROS Statement: Those systems with pertinent positive or pertinent negative responses have been documented in the HPI. ROS Other: All systems not noted in ROS Statement are negative. Past Medical History Past Medical History: Asthma, Hypertension, Osteoarthritis (OA), Pneumonia Additional Past Medical History / Comment(s): allergies, hx asthma (no problems now) .,HPV, diverticulitis. History of Any Multi-Drug Resistant Organisms: None Reported Past Surgical History: Tonsillectomy, Uterine Ablation Additional Past Surgical History / Comment(s): uternie ablation, colonoscopy, conization of cervix Past Anesthesia/Blood Transfusion Reactions: No Reported Reaction Additional Past Anesthesia/Blood Transfusion Reaction / Comment(s): . Past Psychological History: No Psychological Hx Reported Smoking Status: Former smoker Past Alcohol Use History: Daily Past Drug Use History: Marijuana - Past Family History Father Family Medical History: Cancer Additional Family Medical History / Comment(s): colon cancer Mother Additional Family Medical History / Comment(s): from aneurysm General Exam Limitations: no limitations General appearance: alert, in no apparent distress Head exam: Present: atraumatic, normocephalic, normal inspection Eye exam: Present: normal appearance, PERRL, EOMI. Absent: scleral icterus, conjunctival injection, periorbital swelling Neck exam: Present: normal inspection Extremities exam: Present: normal inspection, full ROM (+pain), tenderness (Lateral) Right Knee exam: Present: tenderness (lateral), swelling, ecchymosis, pain/laxity with valgus Neurovascular tendon exam: Present: no vascular compromise. Absent: motor deficit, sensory deficit Neurological exam: Present: alert, oriented X3, CN II-XII intact Psychiatric exam: Present: normal affect, normal mood Skin exam: Present: warm, dry, intact, normal color. Absent: rash Course Vital Signs 07/20/22 12:22 Temperature 98.2 F Pulse Rate 79 Respiratory 16 Rate Blood Pressure 160/87 O2 Sat by Pulse 98 Oximetry Medical Decision Making - Medical Decision Making Patient is a 66-year-old female presenting with chief complaint of right knee pain. She injured herself yesterday. Complaining of pain mainly on the lateral portion. On examination there is increased pain with valgus stress, tenderness along the LCL. X-ray shows no acute fracture or dislocation. Likely an injury to the LCL. Patient will be placed in a knee immobilizer and provided with crutches. Educated on supportive treatment with Motrin and Tylenol as well as resting, icing, elevating. Follow-up with orthopedics. Follow-up with PCP. Report back to ER with any new or worsening symptoms. Discussed return parameters and answered all questions. Patient conveyed verbal understanding and agreed to the plan. I discussed this case in detail with my attending Dr. Irving. Disposition Clinical Impression: Knee sprain, Injury of lateral collateral ligament (LCL) of knee Disposition: HOME SELF-CARE Condition: Good Instructions (If sedation given, give patient instructions): Knee Sprain (ED) Additional Instructions: Follow-up with PCP and orthopedics. Report back to ER with any new or worsening symptoms. Take Motrin and Tylenol as needed for pain control. Rest, ice, compress, elevate the knee. Utilize knee immobilizer and crutches. Is patient prescribed a controlled substance at d/c from ED?: No Referrals: Whateley,Rommel, MD [Primary Care Provider] - 1-2 days Jayce Oliveira PAC [PHYSICIAN MATERIAL CHASER] - 1-2 days Time of Disposition: 13:23
== END 2022-07-20 13:57 | disposition home or self-care (01) ==
LOC: EC 12:15
DX: S83.91XA Sprain of unspecified site of right knee, initial encounter (principal); S83.422A Sprain of lateral collateral ligament of left knee, initial encounter; J45.909 Unspecified asthma, uncomplicated; I10 Essential (primary) hypertension; M19.90 Unspecified osteoarthritis, unspecified site; J18.9 Pneumonia, unspecified organism; F12.90 Cannabis use, unspecified, uncomplicated; Z87.891 Personal history of nicotine dependence; Z79.811 Long term (current) use of aromatase inhibitors; Z88.8 Allergy status to other drugs, medicaments and biological substances; W26.8XXA Contact with other sharp object(s), not elsewhere classified, initial encounter
CPT/HCPCS: 73562; 99284; L1830 ×2

== ENCOUNTER → 2022-08-05 | Outpatient (CLI) | payer MEDICARE, OTHER ==
--- NOTE | 2022-08-05 16:18 | BD ---
EXAMINATION TYPE: Axial Bone Density DATE OF EXAM: 08/05/2022 COMPARISON: BASELINE CLINICAL HISTORY: 66 years old Female. ICD-10 CODE: M81.0 OSTEOPOROSIS Height: 63.5 Weight: 205 FRAX RISK QUESTIONS: Alcohol (3 or more units per day): OCCASIONALLY Family History (Parent hip fracture): NO History of Fracture in Adulthood: NO Secondary Osteoporosis: NO Rheumatoid Arthritis: NO Current Tobacco Use: NO RISK FACTORS HISTORY OF: Family History of Osteoporosis: NO Active: YES Diet low in dairy products/other sources of calcium: NO Postmenopausal woman: YES Lost more than 2 inches in height since high school: YES MEDICATIONS: Additional Medications: YES VIT D3,HBP, ANTI DEPRESSANT, CHOLESTEROL, REFLUX EXAM MEASUREMENTS: Bone mineral densitometry was performed using the [employer] System. Bone mineral density as measured about the Lumbar spine is: ----- L1-L4(G/cm2): 1.098 T Score Values are as follows: ----- L1: -1.5 ----- L2: -0.3 ----- L3: -0.3 ----- L4: -0.9 ----- L1-L4: -0.7 Bone mineral density BASELINE Bone mineral density about the R hip (g/cm2): 0.951 Bone mineral density about the L hip (g/cm2): 1.007 T Score values are as follows: -----R Neck: -1.8 -----L Neck: -1.6 -----R Total: -0.4 -----L Total: 0.0 Bone mineral density BASELINE FRAX%s: The graph provided illustrates a 9.3% chance for a major osteoporotic fx and a 1.2% chance fo r the hips probability for fx in 10 years time. IMPRESSION: Osteopenia (T Score between -2.5 and -1). There is slightly increased risk of fracture and the patient may be considered for treatment. Re-Screen 2-5 years. NOTE: T-SCORE=SD OF THE YOUNG ADULT MEAN.
--- NOTE | 2022-08-06 08:51 | MM ---
Reason for Exam: Screening (asymptomatic). Last mammogram was performed 3 year(s) and 11 month(s) ago. Patient History: Menarche at age 13. First Full-Term at age 25. Postmenopausal. Excisional Biopsy on the Right side. Risk Values: Lorna 5 year model risk: 1.8%. NCI Lifetime model risk: 6.6%. Prior Study Comparison: 11/04/2015 Screening Mammogram, Unknown. 02/20/2017 Screening Mammogram, Unknown. 09/21/2018 Bilateral Screening Mammogram, [facility]. Tissue Density: The breast tissue is almost entirely fat. Findings: Analyzed By CAD. There is no suspicious group of microcalcifications or new suspicious mass in either breast. Overall Assessment: Negative, BI-RAD 1 Management: Screening Mammogram of both breasts in 1 year. A clinical breast exam by your physician is recommended on an annual basis and results should be correlated with mammographic findings. [facility] will attempt to contact patient to return for supplemental views and ultrasound if indicated. Electronically signed and approved by: James Garcia DO
== END | disposition home or self-care (01) ==
LOC: RADMAMWWP 14:15
PROVIDERS: ATTEND Internal Medicine
DX: Z12.31 Encounter for screening mammogram for malignant neoplasm of breast (principal); M85.89 Other specified disorders of bone density and structure, multiple sites; Z78.0 Asymptomatic menopausal state; Z98.890 Other specified postprocedural states
CPT/HCPCS: 77063; 77067; 77080

== ENCOUNTER → 2022-08-05 | Outpatient (CLI) | payer MEDICARE, OTHER ==
--- NOTE | 2022-08-05 16:26 | CTL ---
EXAMINATION TYPE: CT Low Dose Lung DATE OF EXAM ORDERED: 08/05/2022 HISTORY: Long-term tobacco use. Lung cancer screening CT DLP: 88.[address] CTDI: 2.4 mGy Automated exposure control for dose reduction was used. SCREENING VISIT: Baseline COMPARISON: None TECHNIQUE: Low dose computed tomography scan was performed through the chest at 1 mm thick sections a nd reconstructed images in multiple planes at 1 mm and [address] DIAGNOSTIC QUALITY: Satisfactory FINDINGS: LUNG NODULES: Present, detailed below: There is 9 x 5 mm C-shaped nodule or nodular thickening in the posterior left upper lobe axial image 48. LUNGS: COPD: Severity: [id number]-nxcceyby borderline Fibrosis: Severity: None Lymph nodes: No greater than 1 cm Other findings: None RIGHT PLEURAL SPACE: Effusion: None Calcification: None Thickening: None Pneumothorax: None LEFT PLEURAL SPACE: Effusion: None Calcification: None Thickening: None Pneumothorax: None HEART: Heart Size: Normal Coronary Calcification: Moderate Pericardial Effusion: None OTHER FINDINGS: Upper abdomen: None Bony thorax: None Supraclavicular region: None Other: None IMPRESSION: Mild emphysematous change with 9 x 5 mm irregular nodule or nodular scarring. CT LUNG RAD AND CT CHEST RECOMMENDATION: Lung-Rad 3 Probably Benign: 6 month follow-up LDCT. S Modifier (other clinically significant findings): None
== END | disposition home or self-care (01) ==
LOC: RADCTMAIN 15:43
PROVIDERS: ATTEND Internal Medicine
DX: Z12.2 Encounter for screening for malignant neoplasm of respiratory organs (principal); J43.9 Emphysema, unspecified; Z87.891 Personal history of nicotine dependence
CPT/HCPCS: 71271